=== PATIENT | female | born 1995 | race Caucasian/White ===

== ENCOUNTER 2017-06-13 07:37 | Inpatient (IN) ==
[2017-06-13] MEDS ORDERED: SALINE FLUSH 10ml SYRINGE IVF PRN (08:15)
--- NOTE | 2017-06-13 08:16 | Emergency Department Report ---
General Adult HPI - General Chief complaint: Abdominal Pain Stated complaint: shoulder pain, diff breathing, pain in uterus Time Seen by Provider: 06/13/17 08:03 Source: patient Mode of arrival: ambulatory Limitations: no limitations - History of Present Illness HPI narrative: 21-year-old female presents to the emergency department with the chief complaint of abdominal discomfort. Patient notes the discomfort radiates toward her shoulders. She states that she was having more pain prior to arrival to the emergency department and did feel slightly short of breath at that time. She states that both of these symptoms have improved. She notes that she had a D&C for termination of [address] Reno in [place]. She describes her pain currently as mild and dull in nature. No current radiation. She denies any trauma, travel, probably prepared food or recent antibiotic use. Symptoms began late yesterday and have been persistent in nature since onset. She was at home when her symptoms began. Patient states that she does have a history of anemia with her last known hemoglobin being approximately 8. - Related Data Home Medications Medication Instructions Recorded Confirmed Ibuprofen 800 mg PO 8H #30 tab 11/27/13 06/13/17 Allergies Allergy/AdvReac Type Severity Reaction Status Date / Time NKDA Allergy Uncoded 06/13/17 07:44 Review of Systems Constitutional: Denies: fever, chills Eyes: Denies: eye pain, vision change ENT: Denies: ear pain, throat pain Cardiovascular: Denies: chest pain, palpitations Respiratory: Denies: cough, dyspnea Gastrointestinal: Reports: abdominal pain. Denies: nausea, vomiting, diarrhea Genitourinary: Denies: urgency, dysuria Musculoskeletal: Denies: back pain, arthralgia Integumentary: Denies: erythema, rash Neurological: Denies: headache, weakness, numbness Psychiatric: Denies: anxiety, depression Endocrine: Denies: fatigue, heat or cold intolerance Hematological/Lymphatic: Denies: easy bleeding, easy bruising Allergic/Immunologic: Denies: facial swelling, urticaria PFSH Patient Stated Medical History Hx Urinary Tract Infection Yes Now No: 06/12/17 Surgical History: D&C Family History: Reviewed and non-contributory - Social History Smoking status: Never smoker Substance use type: does not use Alcohol intake frequency: does not drink Physical Exam - Limitations Limitations: no limitations - General General appearance: alert, in no apparent distress - Normal Exams: Head:: Normocephalic without trauma Eyes:: Pupils are PERRLA w/ EOMI, No scleral icterus, irritation, or foreign bodies noted ENMT:: No facial trauma, nasal exudates, pharyngeal erythema, or exudates are noted Dental: No fractured, loose, or missing teeth noted Neck:: Full range of motion, without adenopathy, JVD, bruits or thyromegaly Chest/Respirations:: Clear all shukla, with good airflow, and symmetry bilaterally Cardiovascular:: Regular rate and rhythm, without murmur or gallop, Pulses 2+ all extremities, capillary refill, <2 seconds all extremities Abdomen:: Bowel sounds positive (Soft. Mild generalized lower abdominal tenderness to palpation without rebound or gaurding. ), non-distended, no hepatosplenomegaly, masses or bruits noted Genitourinary:: Vulva without rashes (Pelvic Exam - normal external exam. Cervical os appears closed. Scant brownish discharge noted. ) Lymphatic:: No lymphadenopathy, or lymphedema noted Musculoskeletal:: No tenderness, or deformity noted, good range of motion, all extremities Integumentary:: No rashes, hives, or bruising noted, hair and nails, without abnormality Neurological:: Patient is alert, and oriented, cranial nerves, motor/sensory/ cerebellar, exams w/o gross deficits, to observation Psychiatric:: Patient exhibits, appropriate attention, emotion and affect Course Vital Signs Temperature 97.7 F 06/13/17 07:47 Pulse Rate 109 H 06/13/17 07:47 Respiratory Rate 24 06/13/17 07:47 Blood Pressure 113/73 06/13/17 07:47 Pulse Oximetry 100 06/13/17 07:47 Temperature 97.9 F 06/13/17 09:39 Pulse Rate 99 06/13/17 09:39 Respiratory Rate 24 06/13/17 09:39 Blood Pressure 101/58 06/13/17 09:39 Pulse Oximetry 100 06/13/17 09:39 Medical Decision Making - MDM Narrative Medical decision making narrative: Labs / imaging were discussed in detail with the patient and questions are answered. Patient was reviewed with Dr. Coombs of [facility] after arrival to the emergency department. Dr. Coombs agrees to admit the patient to his service. At this time CT scan of the abdomen/pelvis is pending. Patient declines offered analgesic pain medication at this time. She is given 1 L normal saline intravenously. Type and screen for packed red cells is obtained. Dr. Coombs presents to the emergency department and evaluates the patient. She will be transfused 1 unit of packed red blood cells. Dr. Coombs will handle antibiotic therapy at his request. Patient will be taken to the OR for further evaluation and treatment by Dr. Coombs after review of CT scan. Patient is in agreement with the current plan of management. Patient is admitted to the service of Dr. Coombs who is in agreement with the current plan of management. No further orders from accepting physician who is in agreement with the current plan of management. Patient is admitted to the hospital in improved condition. I have no source of infection at this time and patient's symptom's are believed to be secondary to a potential uterine perforation. - Differential Diagnosis anemia, postsurgical complication, metabolic disorder, UTI - Lab Data Result diagrams: 06/13/17 08:32 06/13/17 08:32 Lab Results 06/13/17 06/13/17 06/13/17 Range/Units 08:32 08:32 08:32 WBC 11.7 H (4.5-11.0) T/MM3 RBC 3.01 L (4.00-5.20) M/MM3 Hgb 6.4 L (12-16) GM/DL Hct 21.5 L (36-46) % MCV 71.4 L (80-100) UM3 MCH 21.3 L (26-34) UUG MCHC 29.8 L (31-37) GM/DL RDW Std Deviation 42.6 (36.9-50.2) FL Plt Count 208 (130-400) T/MM3 MPV 10.5 (9.4-12.4) UM3 Immature Gran % (Auto) 0.2 (0.0-0.5) % Neut % (Auto) 71.0 H (33-66) % Lymph % (Auto) 21.4 L (23-45) % Mitchell % (Auto) 5.5 (0-9.0) % Eos % (Auto) 1.5 (0-4) % Baso % (Auto) 0.4 (0-2) % Neut # (Auto) 8.3 H (1.8-7.7) T/MM3 Lymph # (Auto) 2.5 (1-4.8) T/MM3 Mitchell # (Auto) 0.6 (0-0.8) T/MM3 Eos # (Auto) 0.2 (0-0.5) T/MM3 Baso # (Auto) 0.1 (0-0.2) T/MM3 Abs Immat Gran (auto) 0.02 (0.00-0.03) T/MM3 Turbidity < 20 (0-20) Sodium 138 (134-144) MEQ/L Potassium 3.7 (3.6-5) MEQ/L Chloride 105 (98-107) MEQ/L Carbon Dioxide 21 L (22-30) MEQ/L Anion Gap 12 (5-15) MEQ/L BUN 12.0 (7-17) MG/DL Creatinine 0.6 L (0.7-1.2) MG/DL GFR Calculation 125 BUN/Creatinine Ratio 20 (6-26) RATIO Glucose 92 (65-110) MG/DL Calculated Osmolality 266 (261-280) MOSM/KG Calcium 8.8 (8.4-10.2) MG/DL Total Bilirubin 0.30 (0.20-1.30) MG/DL Icterus Index < 2 (0-7) AST 15 (14-36) U/L ALT 20 (9-52) U/L Alkaline Phosphatase 61 (38-126) U/L Total Protein 7.3 (6.3-8.2) G/DL Albumin 3.9 (3.5-5.0) G/DL Globulin 3.4 (2.4-3.6) G/DL Albumin/Globulin Ratio 1.1 (1.1-2.2) RATIO Lipase 31 (23-300) U/L Specimen Hemolysis < 15 (0-25) Ur Collection Type Urine, clean catch Urine Color Yellow (YELLOW) Urine Clarity Sl cloudy Urine pH 6.0 (5.0-8.0) Ur Specific [place] >=1.030 H (1.015-1.025) Urine Protein Trace A (NEGATIVE) Urine Glucose (UA) Negative (NEGATIVE) Urine Ketones Negative (NEGATIVE) Urine Occult Blood Negative (NEGATIVE) Urine Nitrate Negative (NEGATIVE) Urine Bilirubin Negative (NEGATIVE) Urine Urobilinogen 0.2 (NORMAL) EU/DL Ur Leukocyte Esterase Negative (NEGATIVE) Urinalysis Comment Microscopic not ind. Blood Type Antibody Screen Crossmatch (AHG) 06/13/17 Range/Units 09:18 WBC (4.5-11.0) T/MM3 RBC (4.00-5.20) M/MM3 Hgb (12-16) GM/DL Hct (36-46) % MCV (80-100) UM3 MCH (26-34) UUG MCHC (31-37) GM/DL RDW Std Deviation (36.9-50.2) FL Plt Count (130-400) T/MM3 MPV (9.4-12.4) UM3 Immature Gran % (Auto) (0.0-0.5) % Neut % (Auto) (33-66) % Lymph % (Auto) (23-45) % Mitchell % (Auto) (0-9.0) % Eos % (Auto) (0-4) % Baso % (Auto) (0-2) % Neut # (Auto) (1.8-7.7) T/MM3 Lymph # (Auto) (1-4.8) T/MM3 Mitchell # (Auto) (0-0.8) T/MM3 Eos # (Auto) (0-0.5) T/MM3 Baso # (Auto) (0-0.2) T/MM3 Abs Immat Gran (auto) (0.00-0.03) T/MM3 Turbidity (0-20) Sodium (134-144) MEQ/L Potassium (3.6-5) MEQ/L Chloride (98-107) MEQ/L Carbon Dioxide (22-30) MEQ/L Anion Gap (5-15) MEQ/L BUN (7-17) MG/DL Creatinine (0.7-1.2) MG/DL GFR Calculation BUN/Creatinine Ratio (6-26) RATIO Glucose (65-110) MG/DL Calculated Osmolality (261-280) MOSM/KG Calcium (8.4-10.2) MG/DL Total Bilirubin (0.20-1.30) MG/DL Icterus Index (0-7) AST (14-36) U/L ALT (9-52) U/L Alkaline Phosphatase (38-126) U/L Total Protein (6.3-8.2) G/DL Albumin (3.5-5.0) G/DL Globulin (2.4-3.6) G/DL Albumin/Globulin Ratio (1.1-2.2) RATIO Lipase (23-300) U/L Specimen Hemolysis (0-25) Ur Collection Type Urine Color (YELLOW) Urine Clarity Urine pH (5.0-8.0) Ur Specific [place] (1.015-1.025) Urine Protein (NEGATIVE) Urine Glucose (UA) (NEGATIVE) Urine Ketones (NEGATIVE) Urine Occult Blood (NEGATIVE) Urine Nitrate (NEGATIVE) Urine Bilirubin (NEGATIVE) Urine Urobilinogen (NORMAL) EU/DL Ur Leukocyte Esterase (NEGATIVE) Urinalysis Comment Blood Type A Positive Antibody Screen Negative Crossmatch (AHG) See Detail - Radiology Data CT ABD/PELVIS: Moderately large amount of dense fluid suggestive of hemoperitoneum more dense than the uterus along with a few bubbles of extraluminal gas posteriorly in the lower pelvis findings raising possibility and concern for uterine perforation. - EKG Data EKG #1 EKG results narrative: Sinus rhythm. 95 bpm. No STEMI. Disposition Clinical Impression: Status post elective Anemia Qualifiers: Anemia type: unspecified type Qualified Code(s): D64.9 - Anemia, unspecified Disposition: 02 To [facility] Condition: Stable Time of Disposition: 09:30 (Admit. Dr. Coombs. ) - Seen By: physician
[2017-06-13] MEDS: NS 1,000 ML IV ONE ×2 (09:25→11:18)
--- NOTE | 2017-06-13 09:31 | OB/GYN Consult Note ---
[employer]ENTICE Consult HPI - Data of Consult Patient: new to practice Consult date: 06/13/17 Requesting Physician: Diego English [facility] emergency Department Primary Care Provider: Tanmay Radford MD - Consult Narrative Reason for consult: other (Pain and SOB s/p ) History of present illness: Ms. Gutierrez is a 21 year old female that presented to [facility] ED this am for complaints of feeling short of air and difficulty sleeping. She states she was having significant pain prior to arrival but it has subsided. She reports she had a termination and clinic in [place] at around 12 wga yesterday at noon. she states she was awake for procedure and and had local anesthetic/ numbing medicine for procedure. She reports no complication with procedure was observed for 30 minutes and discharged home. She has had some cramping and brown discharge but reports no VB. She denies Fever/Chills, N/V. She does complain of pain with urination like with a UTI she has had in the past. She reports pain in her lungs when she moves but points to her upper abdomen. : 1 Para: 0 - OB History #1 Delivery Type: therapeutic (Termination at 12 wga ) Complications: 05/2017 Review of Systems - Constitutional Constitutional: Absent: fever(s) - EENT Eyes: Absent: blurry vision Ears: Absent: ear pain - Cardiovascular Cardiovascular: Absent: chest pain - Respiratory Respiratory: Absent: dyspnea on exertion - Gastrointestinal Gastrointestinal: Present: abdominal pain - Genitourinary Genitourinary: Present: abnormal vaginal bleeding Menstruation: Present: as per HPI - Musculoskeletal Musculoskeletal: Present: as per HPI - Integumentary/Breasts Integumentary: Absent: pruritus, rash - Neurological Neurological: Absent: dizziness, headache(s), numbness - Psychiatric Psychiatric: Absent: anxiety, depression PFSH Patient Stated Medical History Hx Urinary Tract Infection Yes Now No: 06/12/17 Surgical History: Obstetrical D&C(Termination) - Social History Smoking status: Never smoker Substance use type: does not use Alcohol intake frequency: does not drink Medications Home Medications Medication Instructions Recorded Confirmed Type Ibuprofen 800 mg PO 8H #30 tab 11/27/06/13/17 History Allergies Allergy/AdvReac Type Severity Reaction Status Date / Time NKDA Allergy Uncoded 06/13/17 07:44 [employer] AP[employer]ENTICE Exam Vital signs: Temperature 97.7 F 12/23/17 07:47 Pulse Rate 109 H 06/13/17 07:47 Respiratory Rate 24 06/13/17 07:47 Blood Pressure 113/73 06/13/17 07:47 Pulse Oximetry 100 06/13/17 07:47 - Constitutional Present: no acute distress - Routine Neck Exam Present: supple, full ROM - Routine Respiratory Exam Present: CTA bilaterally - Routine Cardiovascular Exam Present: RRR - Routine Abdominal Exam Present: soft, normoactive bowel sounds, non distended, non tender - Detailed Pelvic Exam Bladder: Present: normal - Routine Extremities Exam Extremities: Present: no edema, non tender - Routine Neurological Exam Present: alert, oriented X3 - Routine Skin Exam Present: intact - Routine Psychiatric Exam Present: normal affect [employer] Results - Labs CBC & Chem 7: 06/13/17 08:32 06/13/17 08:32 Labs: UA Ur Collection Type Urine, clean catch 06/13/17 08:32 Urine Color Yellow (YELLOW) 06/13/17 08:32 Urine pH 6.0 (5.0-8.0) 06/13/17 08:32 Ur Specific [place] >=1.030 (1.015-1.025) H 06/13/17 08:32 Urine Protein Trace (NEGATIVE) A 06/13/17 08:32 Urine Glucose (UA) Negative (NEGATIVE) 06/13/17 08:32 Urine Ketones Negative (NEGATIVE) 06/13/17 08:32 Urine Occult Blood Negative (NEGATIVE) 06/13/17 08:32 Urine Nitrate Negative (NEGATIVE) 06/13/17 08:32 Urine Bilirubin Negative (NEGATIVE) 06/13/17 08:32 Urine Urobilinogen 0.2 EU/DL (NORMAL) 06/13/17 08:32 Ur Leukocyte Esterase Negative (NEGATIVE) 06/13/17 08:32 - Impressions CT scan c/w hemoperitoneum and uterine perforation. Assessment and Plan (1) Status post elective Current visit: Yes Status: Acute 24 s/p D&C. CT results discussed with radiologist, Enlarged uterus Hypodense clot along ventral margin, Moderate to large amount of fluid extending along the paracolic gutters. Will start 1 unit of PRBC, Proceed with Dx laparoscopy for hemoperitoneum and presumed uterine perforation. Discussed R/B/A to procedure including infection, injury to bowel, bladder, bleeding with need for transfusion. (2) Anemia Current visit: Yes Status: Acute IV iron infusion followed by PO iron replacement.
[2017-06-13] MEDS ORDERED: IBUPROFEN 800 MG TABLET PO PRN ×2 (09:46→13:31)
[2017-06-13] MEDS ORDERED: IRON - PHARMACY CONSULT MC ONE (09:50)
[2017-06-13] MEDS ORDERED: NS FLUSH BAG 500ml IV PRN (10:17)
[2017-06-13 10:29] VITALS: BMI 19.8
[2017-06-13] MEDS ORDERED: SUCCINYLCHOLINE 20mg/mL 10mL INJECTION ONE (10:54)
[2017-06-13] MEDS ORDERED: ROCURONIUM 50 MG/5 ML INJECTION IVP ONE (10:54)
[2017-06-13] MEDS ORDERED: PROPOFOL 20 ML ONE (10:54)
[2017-06-13] MEDS ORDERED: FentaNYL 250 MCG/5 ML INJECTION ONE (10:55)
--- NOTE | 2017-06-13 11:02 | Anesthesia Preoperative Report ---
Anesthesia Preoperative Record - Date and Time Date: 06/13/17 Preoperative Diagnosis: anemia Proposed Procedure: Diagnostic Laparoscopy NPO Since Date: 06/13/17 NPO Since Time: 07:00 (Water) Allergies/Adverse Reactions: Allergies Allergy/AdvReac Type Severity Reaction Status Date / Time NKDA AdvReac Mild Apprehensio Uncoded 06/13/17 10:49 n - Vital Signs Vital Signs: Temperature 97.1 F 06/13/17 10:23 Pulse Rate 95 06/13/17 10:23 Respiratory Rate 16 06/13/17 10:23 Blood Pressure 125/68 06/13/17 10:23 Pulse Oximetry 100 06/13/17 10:23 Height and Weight: Height 1.63 m Weight 52.3 kg Body Mass Index 19.8 - Medications Inpatient Medications: Current Medications Sodium Chloride (Iv Flush) 10 - 80 ml IVF PRN PRN PRN Reason: Flushing Last Admin: 06/13/17 08:32 Dose: 10 ml Sodium Chloride (Normal Saline) 500 ml IV PRN PRN Home Medications: Home Medications Medication Instructions Recorded Confirmed Type Ibuprofen 800 mg PO 8H #30 tab 11/27/13 06/13/17 History Is Patient on Beta Astrid?: No - Medical History Cardiovascular: Reports: Other (Anemia Acute/ Hgb 5.7) Other History: Reports: Now ( 06/12/17) - Social History Smoking Status: Never smoker Hx Chewing Tobacco Use: No Second Hand Exposure: No Substance Use Type: does not use Alcohol Intake Frequency: does not drink - Pertinent Findings EKG: Sinus Rhythm - Physical Exam Respiratory Exam: Present: lungs clear Cardiovascular Exam: Present: regular rate and rhythm - Airway Assessment Mallampati Score: II TMD: 3 Fingerbreadths Neck Extension: good Overall Assessment: no airway concerns - ASA ASA Score: 2, E - Plan Anesthesia: General Inhalation Gases (RSI) - Discussion Discussion: Discussed risks/options/alternatives of anesthesia and questions answered. Patient consents. Nursing pain assessment noted. Attestation Statement: Prior to the delivery of any anesthetic medication, I examined the patient, developed the plan, obtained the patient's consent and discussed the risk and benefits of the procedure with the patient/guardian. - Additional Information Seen by Anesthesia: Yes
[2017-06-13] MEDS ORDERED: BUPIVACAINE 0.25% (2.5mg/ml) PF 30ml INJECTION ONE (11:44)
[2017-06-13] MEDS: TRANEXAMIC ACID 1,000 MG in NS 100 ML IV ONE ×2 (12:02→14:06)
[2017-06-13] MEDS ORDERED: TRANEXAMIC ACID 1,000mg/10ml INJECTION ONE (12:06)
[2017-06-13] MEDS ORDERED: DESFLURANE 240ml LIQUID IH ONE (13:25)
[2017-06-13] MEDS ORDERED: DiphenhydrAMINE 50 MG/ML INJECTION IVP PRN (13:28)
[2017-06-13] MEDS ORDERED: ONDANSETRON 4 MG/2 ML INJECTION IVP PRN ×2 (13:28→13:31)
[2017-06-13] MEDS ORDERED: METOCLOPRAMIDE 10mg/2ml INJECTION IVP PRN ×2 (13:28→13:31)
[2017-06-13] MEDS ORDERED: Oxycodone/Acetaminophen 5/325 1 TAB PO PRN (13:31)
[2017-06-13] MEDS: HYDROMORPHONE 2 MG/ML INJECTION IVP PRN ×2 (13:31→13:41)
[2017-06-13] MEDS ORDERED: HYDROMORPHONE PCA 30mg/30ml VIAL IV PRN (13:37)
--- NOTE | 2017-06-13 13:41 | Anesthesia Postoperative Note ---
- Date and Time Date: 06/13/17 Time: 13:40 - Status Patient Participated in Evaluation: Patient Participated in Person Vital Signs: Temperature 98.3 F 06/13/17 13:24 Pulse Rate 99 06/13/17 13:39 Respiratory Rate 16 06/13/17 13:39 Blood Pressure 125/85 06/13/17 13:39 Pulse Oximetry 100 06/13/17 13:39 Respiratory Function: Airway Patent Cardiovascular Function: Regular Pulse EKG: Sinus Tachycardia Mental Status: Alert and Oriented Pain Intensity: 8 Hydration: IV Infusing Complications During Recover: None Apparent - Follow-Up Instructions Instructions: Per Surgeon
--- NOTE | 2017-06-13 13:43 | OB/GYN Procedure Note ---
WHEEL POLISHER Operative Note Date of Operation: 06/13/17 Comments: Acute blood loss anemia S/P Suction D&C Postoperative Diagnosis: Same as Preoperative Comments: Hemoperitoneum Hematometrium WHEEL POLISHER Procedure: Dx Laparoscopy Comments: DX Laparotomy Surgeon: Gigi Coombs DO Machine Applicator Cementer: Other (Dr. Dell Davis) Anesthesia Provider: Jose Cano CRNA Anesthesia Type: General Estimated Blood Loss:: 800cc Hempperitoneum, 25cc active blood loss Findings: Hematometrium Hemoperitoneum Normal appearing BL tubes and ovaries, Enlarged uterus with hematometrium Description of Procedure: See dictation
[2017-06-13] MEDS ORDERED: LR 1,000 ML IV SCH (13:45)
[2017-06-13] MEDS ORDERED: BUPIVACAINE 0.25% (2.5mg/ml) PF 30ml INJECTION INFIL ONE (14:49)
[2017-06-13] MEDS ORDERED: SILVER NITRATE APPLICATOR TOP PRN (14:51)
[2017-06-13] MEDS: NS 1,000 ML IV SCH (17:52)
[2017-06-13] MEDS: SIMETHICONE 80 MG CHEWABLE TABLET PO SCH ×2 (20:10→20:19)
[2017-06-13 20:24] VITALS: O2SAT 99
[2017-06-14 00:45] VITALS: PULSE 111
[2017-06-14] MEDS: NS 1,000 ML IV SCH (01:34)
--- NOTE | 2017-06-14 07:07 | OB/GYN Progress Note ---
FIXTURE MAKER Post Op Progress Note - General POD:: POD1 Pain: controlled Pain: 3-4 on [employer] Voiding: gurrola still in place Voiding: Intake & Output 06/13/17 06/14/17 06/14/17 22:59 06:59 14:59 Intake Total 935.417 / 233.717 6855 / 1700 Output Total 700 / 700 1600 / 1600 Balance 235.417 / 235.417 100 / 100 Nausea or Vomiting: No Ambulating: Yes (Minimal with symptoms) - Objective Vital Signs: Vital Signs Temp 98.1 F 06/14/17 04:00 Pulse 111 H 06/14/17 04:00 Resp 18 06/14/17 06:00 BP 105/66 06/14/17 04:00 Pulse Ox 99 06/14/17 04:00 Vital Signs Temp Pulse Resp BP Pulse Ox 06/14/17 06:00 18 06/14/17 04:00 98.1 F 111 H 18 105/66 99 06/14/17 00:00 99.1 F 111 H 20 106/64 99 06/13/17 20:05 117 H 106/67 99 06/13/17 20:00 99.5 F 114 H 20 102/65 99 06/13/17 19:50 103 H 106/84 100 06/13/17 17:49 104 H 110/67 100 06/13/17 16:49 101 H 119/76 99 06/13/17 16:09 92 16 100 06/13/17 15:49 93 120/72 100 06/13/17 15:19 90 128/78 100 06/13/17 14:49 97 125/76 100 06/13/17 14:34 90 125/69 97 06/13/17 14:19 88 119/69 99 06/13/17 14:04 98.3 F 100 16 133/80 98 06/13/17 13:54 97.9 F 98 16 110/61 100 06/13/17 13:49 99 15 116/64 100 06/13/17 13:44 97 14 113/64 100 06/13/17 13:39 99 16 125/85 100 06/13/17 13:34 103 H 17 128/78 99 06/13/17 13:29 107 H 18 141/86 H 100 06/13/17 13:24 98.3 F 113 H 16 129/79 100 06/13/17 10:30 97.1 F 100 118/69 100 06/13/17 10:23 97.1 F 95 16 125/68 100 06/13/17 10:22 95 118/74 100 06/13/17 09:39 97.9 F 99 24 101/58 100 06/13/17 07:47 97.7 F 109 H 24 113/73 100 Intake and Output 06/13/17 06/14/17 06/14/17 22:59 06:59 14:59 Intake Total 935.417 / 791.557 4235 / 1700 Output Total 700 / 700 1600 / 1600 Balance 235.417 / 235.417 100 / 100 Intake: IV 335.417 / 842.069 9126 / 1000 Lr 1,000 ml @ 125 mls/hr IV . 335.417 / 335.417 Q8H [facility] Rx#:[id number] Ns 1,000 ml @ 100 mls/hr IV . 1000 / 1000 Q10H [facility] Rx#:[id number] Oral 600 / 600 700 / 700 Output: Urine Amount (Catheter) 700 / 700 1600 / 1600 Other: Urine Appearance Clear Clear Urine Color Yellow Pale Yellow Urine Odor Normal Normal Urine Output: good General: alert and oriented Cardiovascular: Regular rhythm, Tachycardiac Respiratory: non-labored Respiratory Auscultation: clear bilaterally Abdomen: soft, non-distended Incision: normal, clean, dry, intact Extremities: non-tender (SCDs on) Laboratory Results: 06/14/17 03:49 06/13/17 08:32 Labs: UA Ur Collection Type Urine, clean catch 06/13/17 08:32 Urine Color Yellow (YELLOW) 06/13/17 08:32 Urine pH 6.0 (5.0-8.0) 06/13/17 08:32 Ur Specific [place] >=1.030 (1.015-1.025) H 06/13/17 08:32 Urine Protein Trace (NEGATIVE) A 06/13/17 08:32 Urine Glucose (UA) Negative (NEGATIVE) 06/13/17 08:32 Urine Ketones Negative (NEGATIVE) 06/13/17 08:32 Urine Occult Blood Negative (NEGATIVE) 06/13/17 08:32 Urine Nitrate Negative (NEGATIVE) 06/13/17 08:32 Urine Bilirubin Negative (NEGATIVE) 12/23/17 08:32 Urine Urobilinogen 0.2 EU/DL (NORMAL) 06/13/17 08:32 Ur Leukocyte Esterase Negative (NEGATIVE) 06/13/17 08:32 - Assessment (1) Status post elective Status: Acute (2) Anemia Comment: S/P DX lanparoscpy, DX laparotomy POD #1 S/P 1 unit PRBC with surgery(HgB 5.7 to 6.4), Cryoprecipitate(Finbrinogen 117 to 187) Anemia- HgB drop from 6.4 to 5.3 overnight- Give 2 units PRBC now, repeat coag panel PT,PTT, INR, Fibrinogen now. Contrast CT now call report to look for active bleeding. NPO for now until CT is back incase surgery is needed. Post op care- Continue [employer], SCDs, Leave folley in place to monitor Is and Os. Status: Acute - Assessment and Plan Discussed care with Oncoming pulmonary care nurse and [facility]KER/ONC in [place]. Will transfer to [facility] in case of continued bleeding, need for further surgery/ Hysterectomy, and risk of continued need for blood products and DIC. WIll transfer while pt condition is stable. Due to type of first surgery, Continued complication and risk of infection will start ABX.
[2017-06-14 07:54] VITALS: BP 121/76; TEMP 98.5
[2017-06-14] MEDS ORDERED: PIPERACILLIN/TAZOBACTAM 3.375 GM in NS 100 ML IV SCH (08:00)
--- NOTE | 2017-06-14 08:11 | Discharge Summary ---
DC Information/Hospital Course Date of admission: 06/13/17 10:15 Anticipated date of discharge: 06/14/17 Attending Physician: Gigi Coombs DO (1) Status post elective Status: Acute (2) Anemia Qualifiers: Other causes of anemia: acute posthemorrhagic Status: Acute Problem details: S/P DX lanparoscpy, DX laparotomy POD #1 S/P 1 unit PRBC with surgery(HgB 5.7 to 6.4), Cryoprecipitate(Finbrinogen 117 to 187) Anemia- HgB drop from 6.4 to 5.3 overnight- Give 2 units PRBC now, repeat coag panel PT,PTT, INR, Fibrinogen now. Contrast CT now call report to look for active bleeding. NPO for now until CT is back incase surgery is needed. Post op care- Continue LOAN EXAMINER, SCDs, Leave folley in place to monitor Is and Os. - Hospital Course Hospital Course: 06/14/17 08:07 CT without contrast in Emergency Department. Shwed large amount of free fluid in pelvis and abdomen DX laparoscopy, DX laparotomy Hospital day 0, S/P Suction D&C from outside facility Post op Day 1 1 unit PRBC, 1 unit cryoprecipitate hospital day 0 HgB drop from 6.4 to 5.3 Post op day 1 hospital day 1 2 units PRBC started Pt to transfer to [facility] Procedures Operation Date: 06/13/17 12:00 Actual Procedures p Laparoscopic diagnostic with conversion to laparotomy diagnostic. - Gigi Coombs DO Imaging Studies: CT scan without contrast in ED. Laboratory: Labs from last 24 hours 06/14/17 06/14/17 06/14/17 06:38 06:16 03:49 WBC RBC Hgb 5.3 L* D Hct MCV MCH MCHC RDW Std Deviation Plt Count MPV INR 1.14 APTT 24.1 Fibrinogen 196 Blood Product Request 1 unit pc issued 06/13/17 06/13/17 06/13/17 19:37 18:21 16:16 WBC 12.3 H D RBC 2.90 L Hgb 6.9 L 6.7 L Hct 21.6 L MCV 74.5 L MCH 23.1 L MCHC 31.0 RDW Std Deviation 51.6 H Plt Count 155 MPV 11.2 INR APTT Fibrinogen 184 Blood Product Request 06/13/17 06/13/17 06/13/17 14:28 12:55 12:48 WBC 8.5 RBC 2.82 L Hgb 6.4 L D Hct 21.2 L MCV 75.2 L MCH 22.7 L MCHC 30.2 L RDW Std Deviation 53.0 H Plt Count 160 MPV 11.0 INR 1.15 APTT 28.3 Fibrinogen Blood Product Request 1 unit cryo issued 06/13/17 11:24 WBC RBC Hgb Hct MCV MCH MCHC RDW Std Deviation Plt Count MPV INR APTT Fibrinogen Blood Product Request 1 unit pc issued COLOR ARTIST Exam Vital signs: Temperature 98.5 F 06/14/17 07:54 Pulse Rate 111 H 06/14/17 07:54 Respiratory Rate 22 06/14/17 07:54 Blood Pressure 121/76 06/14/17 07:54 Pulse Oximetry 99 06/14/17 07:54 - Constitutional Present: no acute distress - Routine Neck Exam Present: supple, full ROM - Routine Respiratory Exam Present: CTA bilaterally - Routine Cardiovascular Exam Present: tachycardia. Absent: RRR - Routine Abdominal Exam Present: soft, normoactive bowel sounds, non distended, non tender Comments: INC C/D/I - Detailed Pelvic Exam Bladder: Present: normal - Routine Extremities Exam Extremities: Present: no edema, non tender - Routine Psychiatric Exam Present: normal affect, normal thought process Discharge Plan - Med Rec/Dispo Prescriptions: No Action Ibuprofen 800 mg PO 8H #30 tab - Disposition 02 Acute Care Hosp, Other
--- NOTE | 2017-06-14 08:13 | Operative Note ---
DATE OF PROCEDURE: 06/13/2017 PREOPERATIVE DIAGNOSES Acute blood loss anemia. Status post suction D&C. POSTOPERATIVE DIAGNOSES Acute blood loss anemia. Status post suction D&C. Hemoperitoneum. Haematometrium. PROCEDURE Diagnostic laparoscopy. Diagnostic laparotomy. SURGEON: DO MILADY Ozuna ASSISTANT: Dell Davis MD ANESTHESIA PROVIDER: Jose Cano CRNA ANESTHESIA TYPE: General endotracheal anesthesia. ESTIMATED BLOOD LOSS 800 cc of hemoperitoneum. Old blood and clot noted. 25 cc of active blood loss. FINDINGS Haematometrium and hemoperitoneum. There were normal appearing bilateral tubes and ovaries with an enlarged uterus significant for some concealed bleeding under the serosa. A small nonexpanding retroperitoneal bleed was noted in the right broad ligament. No active bleeding was noted. INDICATIONS FOR PROCEDURE This is a 21-year-old, G3-P2-0-1-2, that presented to the [facility] Emergency Department with complaints of shoulder pain and feeling like it was difficult to breathe. She also states she was having some cramping, minimal bleeding and some slight abdomen and pelvic pain. Patient reports that she is status post from a termination that was a dilatation and curettage with suction curette. She is postop day 1. She had the procedure at approximately 12 pm yesterday. Patient was initially mild tachycardic but noted to be normotensive and all other vital signs stable upon exam in the emergency room. A pelvic exam done by the emergency provider noted minimal bleeding in the vaginal vault. No active bleeding from the cervix and a benign abdomen. Patient reports her blood type is Rh-positive. She did not receive RhoGAM status post procedure yesterday. She was noted to have a hemoglobin of 6.4 and reports a hemoglobin of 8 prior to the procedure yesterday and states that she is chronically anemic. CT scan of the abdomen and pelvis revealed an enlarged uterus with a heterogeneous substance, anterior uterus and moderate to large amount of free fluid in the pelvis and paracolic gutter extending into the upper abdomen. Patient's history is significant for suction dilatation and curettage. The risk of perforation and injury to bowel or bladder and active bleeding was significant and indication for a diagnostic laparoscopy, possible diagnostic laparotomy, and possible hysterectomy was discussed with the patient. Risks, benefits, and alternatives to the procedure were discussed. Questions were elicited and answered. PROCEDURE Patient was taken to the operating room where general endotracheal anesthesia was obtained without difficulty. At this time one unit of packed red blood cells was started to transfuse secondary to her hemoglobin continuing to decrease to 5.4. Patient was then placed in the dorsal lithotomy position and she was prepped and draped in the normal sterile fashion. [place] speculum was placed in the vagina and the cervix was visualized and a [place] uterine manipulator was placed without difficulty. Her bladder was drained and approximately 400 cc of normal appearing clear urine was received back. At this time the surgeon was regloved and attention was turned to the abdomen. A 5 mm infraumbilical incision was made and a Veress needle was introduced into the abdomen without difficulty. The abdomen was then insufflated to 15 mmHg with CO2 gas. The Veress needle was removed and a 5 mm trocar was inserted. At this time the camera was inserted into the abdomen and pelvis and quick visualization showed there was a hemoperitoneum and an enlarged uterus. At this time a 5 mm incision was made midline suprapubicly and the 5 mm trocar was inserted under direct visualization. Attempt to manipulate the uterus at this time was performed and the uterus was not able to be manipulated secondary to being too heavy and a third 5 mm incision was made 2 cm cephalad and 2 cm medial from the left ASIS and the 5 mm trocar was inserted under direct visualization. At this time inspection of the pelvis was attempted to be performed. Multiple attempts to lift the uterus were made and slight elevation of the uterus could be made but there appeared to be some active bleeding from the posterior left aspect of the uterus that could not be visualized and decision was made to proceed with diagnostic laparoscopy. All instruments were removed from the abdomen. All 5 mm trocars were removed from the abdomen. The left lower quadrant port site was closed with 4-0 Monocryl in a subcutaneous fashion. At this time a skin incision was made in vertical fashion from the pubis to the umbilicus. Cautery was used on the cut setting to continue down through the subcutaneous layer and through the fascia. Hemoperitoneum was identified, tented up with two hemostats, and entered sharply with the Metzenbaum scissors. The peritoneal incision was then extended superiorly and inferiorly with good visualization of the bladder. At this time copious amounts of hemoperitoneum was suctioned with the suction railway head tender. Difficulty visualizing the posterior uterus was still noted and the skin incision was extended above the umbilicus and the fascial incision was extended as well. At this time the uterus was able to be elevated out of the pelvis and moved forward. The bowel was packed away with laparotomy sponges and the pelvis was thoroughly irrigated. Thorough inspection of the posterior broad ligaments was performed along with the fallopian tubes and ovaries. Thorough inspection of the pelvis including the sigmoid colon and rectum was performed. At this time the anterior surface of the uterus was thoroughly inspected along with both broad ligaments and no [id number] perforation could be identified. There was a significant amount of hematoma noted on the anterior uterus and a presumed diagnosis of injury to the anterior uterine wall with some concealed bleeding under the serosa, no enlarging hematoma could be identified. Both pelvic sidewalls were visualized and no retroperitoneal hematoma was noted. At this time both paracolic gutters were inspected and visualized. The liver edge could be seen and was noted to be hemostatic. The spleen edge could be seen and was noted to be hemostatic. At this time the bowel was inspected from the falciform ligament down to the rectum. No injury to small bowel, transverse colon or sigmoid colon noted. The appendix was visualized and noted to be normal. Again, the abdomen and pelvis were thoroughly irrigated and then suctioned. No active bleeding could be seen. A figure of eight suture was placed at a small site of bleeding from serosal injury from laparoscopy on the fundus of the uterus with 3.0 chromic, excellent hemostasis was noted. The uterus was replaced and released off any tension. Inspection for any further bleeding was performed. No active bleeding could be noted. During the procedure the patient was noted to have a fibrinogen of less than 200 and cryoprecipitate was ordered. All sponges were removed from the abdomen. Sponge counts were correct. Mesh closure was performed using 0-PDS. Skin was closed with tina. Sponge, lap and needle counts were correct x 2 and the patient was taken to the recovery room in stable condition. YOMAIRA
[2017-06-14] MEDS ORDERED: HYDROMORPHONE 2 MG/ML INJECTION IVP PRN (08:20)
[2017-06-14] MEDS ORDERED: DOCUSATE CALCIUM 240 MG CAPSULE PO SCH (09:00)
--- NOTE | 2017-06-14 09:05 | CT Scan Report ---
Indication: Post procedure PROCEDURE: CT abdomen pelvis wo con: Encounter: Initial Comparison: None Technique: Axial CT images were performed through the abdomen and pelvis without intravenous contrast. Coronal and sagittal two-dimensional reformats. Automated Exposure Control and Iterative Reconstruction dose reducing techniques were utilized. Findings: The lung bases are clear. The liver is unremarkable. Small amount of ascites present. Gallbladder is within normal limits. The spleen, pancreas, adrenal glands and kidneys are grossly normal on this noncontrast study. Large amount of free fluid in the pelvis with areas of high attenuation probably representing hemorrhage. No evidence of a bowel obstruction. No significant free air appreciated. Uterus is enlarged. Bone windows are within normal limits. Impression: Large amount of free fluid with some hemorrhage in the pelvis raising concern for uterine perforation. Gynecologic consultation is recommended. There is a preliminary report by [facility]. .
--- NOTE | 2017-06-14 09:06 | XRay Report ---
Indication: cough PROCEDURE: XR chest 1V: Encounter: Initial Comparison: None FINDINGS: The lungs are clear. There is no abnormal airspace opacity, pleural effusion or pneumothorax identified. The heart size, pulmonary vasculature and mediastinum are within normal limits. No significant skeletal abnormality is seen. IMPRESSION: No acute cardiopulmonary abnormality. .
[2017-06-14] MEDS: SIMETHICONE 80 MG CHEWABLE TABLET PO SCH (09:40)
[2017-06-14 11:09] VITALS: RESP 20
== END 2017-06-14 10:16 | disposition short-term general hospital (02) | DRG 802 ==
LOC: ED 07:37 → SRG 10:15
PROVIDERS: ADMIT Obstetrics & Gynecology; ATTEND Obstetrics & Gynecology